=== PATIENT | male | born 1945 | race Caucasian/White ===

== ENCOUNTER 2020-11-01 01:24 | Emergency (ER) | payer MEDICARE ==
[2020-11-01 01:52] LABS: Absolute Lymphocytes (CBC) 1.6 K/uL (0.7-4.9); Basophils % 0.8 % (0-1.3); Hematocrit 41.5 % (39.6-49.0); Lymphocytes % 17.7 % (15.3-44.8); MPV 9.3 fL (7.6-11.3); RBC Red Blood Cell Count 4.39 M/uL (4.33-5.43)
[2020-11-01 01:54] LABS: Urine Blood 3+ (Negative); Urine Glucose Negative (Negative); Urine Protein 2+ (Negative); Urine Specific Gravity >=1.030 (1.005-1.030)
[2020-11-01] MEDS ORDERED: MORPHINE 4 MG/ML SYR ONE (01:57)
[2020-11-01] MEDS ORDERED: ONDANSETRON 4 MG/2 ML VIAL ONE (01:57)
[2020-11-01] MEDS ORDERED: TAMSULOSIN 0.4 MG SR CAP ONE (01:57)
[2020-11-01 01:58] LABS: Potassium 3.6 mmol/L (3.5-5.1)
[2020-11-01] MEDS ORDERED: Magnesium Sulfate 2gm IVPB 2 G/50 ML BAG IV ONE (01:58)
[2020-11-01] MEDS ORDERED: NA CHLORIDE 0.9% 1,000 ML ONE (02:05)
[2020-11-01] MEDS ORDERED: MEPERIDINE HCL 25 MG/ML SYR ONE ×2 (02:19→03:33)
--- OUTSIDE RECORDS SUMMARY | 2020-11-01 02:40 | XMS REPORT | Continuity of Care Document ---
:1945 Author Organization [facility] t Address [address] [place] [address] Care Team Providers Name Role Phone Unruly Calderon MD Attending Clinician DR KALI Attending Clinician Unavailable DR PINA Attending Clinician Unavailable DR KALI Admitting Clinician Unavailable DR PINA Admitting Clinician Unavailable Problems This patient has no known problems. Allergies, Adverse Reactions, Alerts This patient has no known allergies or adverse reactions. Medications This patient has no known medications. Procedures This patient has no known procedures. Encounters Start End Encounter Admission Attending Care Care Encounter Source Date/Time Date/Time Type Type Clinicians Facility Department ID 2020-10-21 2020-10-21 Office NOREEN Calderon [id number] 09:28:50 10:35:38 Visit Jennifer Croft [id number] [place] [id number] [facility] [id number] nal 059 [facility] 2020-04-29 2020-04-29 Outpatient [facility] [id number] [facility] [address] 00:00:00 00:00:00 [facility] 2019-07-05 2019-07-05 Emergency E [facility]ITO [facility] [id number] [place] 19:15:00 20:11:00 [facility] [place] 2019-01-04 2019-01-04 Emergency E PINA [facility] [id number] 75 [place] 08:53:00 10:00:00 [facility] Results This patient has no known results.
[2020-11-01] MEDS ORDERED: KETOROLAC 30 MG/ML INJ ONE (03:34)
--- NOTE | 2020-11-01 05:45 | EDPHYS ---
Physician Documentation [facility] Name: Micheal Draper Age: 74 yrs Sex: Male : 1945 Arrival Date: 11/01/2020 Time: 01:25 Bed 5 Private MD: ED Physician Floyd Walden HPI: 11/01 01:35 This 74 yrs old Male presents to ER via Unassigned with complaints of flank rn pain, kidney stone. 01:35 The patient complains of pain in the left low back. The pain radiates to the abdomen. rn Onset: The symptoms/episode began/occurred just prior to arrival. Modifying factors: The symptoms are alleviated by nothing. the symptoms are aggravated by nothing. Associated signs and symptoms: Pertinent positives: nausea, Pertinent negatives: fever. Severity of pain: At its worst the pain was moderate in the emergency department the pain is unchanged. The patient has experienced similar episodes in the past. The patient has not recently seen a physician. Reports thinks passing kidney stone, identical to previous episodes in past, never required surgery or intervention, just started within last 2 hours. . Historical: - Allergies: 01:40 No Known Allergies; [facility] - Home Meds: 01:40 tamsulosin oral [Active]; atorvastatin oral [Active]; [facility] - PMHx: 01:40 Hypercholesterolemia; Carcinoma of prostate; [facility] - PSHx: 01:42 None; [facility] - Immunization history:: Adult Immunizations up to date, Client reports receiving the 2nd dose of the Covid vaccine. - Social history:: Smoking status: Patient denies any tobacco usage or history of. - Family history:: not pertinent. - Hospitalizations: : No recent hospitalization is reported. ROS: 01:35 Constitutional: Negative for fever, chills, and weight loss, Eyes: Negative for injury, rn pain, redness, and discharge, Neck: Negative for injury, pain, and swelling, Cardiovascular: Negative for chest pain, palpitations, and edema, Respiratory: Negative for shortness of breath, cough, wheezing, and pleuritic chest pain, Abdomen/GI: Negative for diarrhea, and constipation, Back: + left flank pain : Negative for injury, bleeding, discharge, and swelling, MS/Extremity: Negative for injury and deformity, Skin: Negative for injury, rash, and discoloration, Neuro: Negative for headache, weakness, numbness, tingling, and seizure. 01:35 All other systems are negative. rn Exam: 01:35 Constitutional: This is a well developed, well nourished patient who is awake, alert, rn appears uncomfortable, pacing around room asking for emesis bag. Head/Face: Normocephalic, atraumatic. Eyes: Periorbital areas with no swelling, redness, or edema. Cardiovascular: Regular rate and rhythm. No pulse deficits. Respiratory: No increased work of breathing, no retractions or nasal flaring. Abdomen/GI: soft, non-tender Back: No spinal tenderness. No costovertebral tenderness. Full range of motion. Skin: Warm, dry MS/ Extremity: Pulses equal, no cyanosis. Neuro: Awake and alert, GCS 15 Vital Signs: 01:38 BP 126 / 80; Pulse 57; Resp 16; Temp 97.7; Pulse Ox 100% ; Weight 73.48 kg; Height 5 jm8 ft. 9 in. (175.26 cm); Pain 10/10; 02:32 BP 109 / 76; Pulse 101; Resp 16 S; Pulse Ox 96% on R/A; Pain 5/10; bb 03:24 BP 132 / 77; Pulse 88; Resp 18 S; Pulse Ox 94% on R/A; Pain 5/10; bb 04:27 BP 107 / 70; Pulse 80; Resp 14; Pulse Ox 96% on R/A; bb 05:25 BP 127 / 71; Pulse 77; Resp 16; Pulse Ox 95% on R/A; 8 01:38 Body Mass Index 23.92 (73.48 kg, 175.26 cm) [facility] MDM: 01:25 Patient medically screened. rn 01:38 Differential diagnosis: nephrolithiasis, pyelonephritis, UTI, diverticulitis. rn Differential diagnosis: ruptured AAA, dissecting AAA. Data reviewed: vital signs, nurses notes. 03:20 ED course: CT shows recently passed 11mm stone in bladder, also has 6mm stone mid rn ureter left side, likely to pass the 6mm if could pass the 11mm. Will treat with more pain medication and assist passage while observing here. . 04:40 ED course: Pt with marked improvement, pain down to 2-3/10, will continue to observe. . rn 05:44 Counseling: I had a detailed discussion with the patient and/or guardian regarding: the rn historical points, exam findings, and any diagnostic results supporting the discharge/admit diagnosis, lab results, radiology results, the need for outpatient follow up, to return to the emergency department if symptoms worsen or persist or if there are any questions or concerns that arise at home. Response to treatment: the patient's symptoms have markedly improved after treatment, the patient's condition has returned to base line, the patient is now symptom free, sleeping comfortably, and as a result, I will discharge patient. Special discussion: I discussed with the patient/guardian in detail that at this point there is no indication for admission to the hospital. It is understood, however, that if the symptoms persist or worsen the patient needs to return immediately for re-evaluation. Based on the history and exam findings, there is no indication for further emergent testing or inpatient evaluation. I discussed with the patient/guardian the need to see the urologist for further evaluation of the symptoms. 11/01 01:26 Order name: CBC with Diff rn 11/01 01:26 Order name: Basic Metabolic Panel rn 11/01 01:26 Order name: CBC with Automated Diff EDMS 11/01 01:26 Order name: Basic Metabolic Panel EDMS 11/01 01:54 Order name: Urine Dipstick-Ancillary EDMS 11/01 01:26 Order name: CT Stone Protocol rn 11/01 01:26 Order name: IV Start; Complete Time: 01:38 rn 11/01 01:26 Order name: Urine Dipstick-Ancillary (obtain specimen); Complete Time: 01:54 rn Administered Medications: 01:45 Drug: morphine 4 mg Route: IVP; Site: right antecubital; bb 02:03 Follow up: Response: No adverse reaction; Pain is unchanged, physician notified bb 01:45 Drug: NS 0.9% 1000 ml Route: IV; Rate: 1000 ml; Site: right antecubital; bb 02:45 Follow up: IV Status: Completed infusion; IV Intake: 1000ml bb 01:46 Drug: Zofran (Ondansetron) 4 mg Route: IVP; Site: right antecubital; bb 02:32 Follow up: Response: No adverse reaction bb 01:56 Drug: Magnesium Sulfate 1 grams Route: IVPB; Infused Over: 1 hrs; Site: right bb antecubital; 03:00 Follow up: IV Status: Completed infusion; IV Intake: 25ml bb 01:56 Drug: Flomax (tamsulosin) 0.4 mg Route: PO; bb 02:32 Follow up: Response: No adverse reaction bb 02:03 Drug: Demerol (meperidine) 25 mg {Note: RASS 0.} Route: IVP; Site: right antecubital; bb 02:32 Follow up: Response: No adverse reaction; Pain is decreased; RASS: Drowsy (-1) bb 03:20 Drug: Ketorolac 15 mg Route: IVP; Site: right antecubital; bb 04:28 Follow up: Response: No adverse reaction; Pain is decreased bb 03:20 Drug: Demerol (meperidine) 25 mg {Note: RASS 0.} Route: IVP; Site: right antecubital; bb 04:28 Follow up: Response: No adverse reaction; Pain is decreased; RASS: Drowsy (-1) bb 05:44 CANCELLED (Duplicate Order): [place] (HYDROcodone-acetaminophen) 10 mg-325 mg 1 tabs PO rn once; RASS on ADMIN: Combtv4, Very Agttd3, Agttd2, Rstlss1, AlertClm0, Drwsy-1, Lt Sdtn-2, Mod Sdtn-3, Dp Sdtn-4, UnArsble-5 06:04 Drug: HYDROcodone-acetaminophen 5 mg-325 mg 1 tabs Route: PO; jm8 06:06 Follow up: Response: No adverse reaction 8 Disposition Summary: 11/01/20 05:45 Discharge Ordered Location: Home rn Problem: an acute exacerbation rn Symptoms: have improved rn Condition: Stable rn Diagnosis - Calculus of kidney with calculus of ureter rn Followup: rn - With: Private Physician - When: As needed - Reason: Recheck today's complaints, Re-evaluation by your physician Discharge Instructions: - Discharge Summary Sheet rn - Kidney Stones rn - Dietary Guidelines to Help Prevent Kidney Stones rn Forms: - Medication Reconciliation Form rn - Thank You Letter rn - Antibiotic ornamenter hand - Prescription Opioid Use rn Prescriptions: - ondansetron 4 mg Oral tablet,disintegrating - take 1 tablet by ORAL route every 8 hours As needed; 15 tablet; Refills: 0, rn Product Selection Permitted - Tramadol 50 mg Oral Tablet - take 1 tablet by ORAL route every 8 hours as needed; 15 tablet; Refills: 0, rn Product Selection Permitted Signatures: Dispatcher [employer] Leonila Hong, Floyd Khan RN, MD MD rn Malcaba, Joseph, RN CHRIS jm8 Corrections: (The following items were deleted from the chart) 01:38 01:35 Constitutional: This is a well developed, well nourished patient who is awake, rn alert, appears uncomfortable, pacing around room asking for emesis bag. Head/Face: Normocephalic, atraumatic. Eyes: Periorbital areas with no swelling, redness, or edema. Cardiovascular: Regular rate and rhythm. No pulse deficits. Respiratory: No increased work of breathing, no retractions or nasal flaring. Abdomen/GI: soft, non-tender Back: No spinal tenderness. No costovertebral tenderness. Full range of motion. Skin: Warm, dry Neuro: Awake and alert, GCS 15 rn 01:39 01:35 Constitutional: This is a well developed, well nourished patient who is awake, rn alert, appears uncomfortable, pacing around room asking for emesis bag. Head/Face: Normocephalic, atraumatic. Eyes: Periorbital areas with no swelling, redness, or edema. Cardiovascular: Regular rate and rhythm. No pulse deficits. Respiratory: No increased work of breathing, no retractions or nasal flaring. Abdomen/GI: soft, non-tender Back: No spinal tenderness. No costovertebral tenderness. Full range of motion. Skin: Warm, dry Neuro: Awake and alert, GCS 15 rn 05:44 05:43 [place] (HYDROcodone-acetaminophen) 10 mg-325 mg 1 tabs PO once; RASS on ADMIN: rn Combtv4, Very Agttd3, Agttd2, Rstlss1, AlertClm0, Drwsy-1, Lt Sdtn-2, Mod Sdtn-3, Dp Sdtn-4, UnArsble-5 ordered. rn
--- NOTE | 2020-11-01 05:45 | ER ---
Nurse's Notes [facility] Name: Micheal Darper Age: 74 yrs Sex: Male : 1945 Arrival Date: 11/01/2020 Time: 01:25 Bed 5 Private MD: Diagnosis: Calculus of kidney with calculus of ureter Presentation: 11/01 01:38 Chief complaint: Patient states: I started having left side flank pain around 1130 jm8 tonight. I have had kidney stones before and it feels like the same thing. Patient also complains of nausea and vomiting. Coronavirus screen: Client denies travel out of the [place] in the last 14 days. Ebola Screen: Patient negative for fever greater than or equal to 101.5 degrees Fahrenheit, and additional compatible Ebola Virus Disease symptoms Patient denies exposure to infectious person. Patient denies travel to an Ebola-affected area in the 21 days before illness onset. Initial Sepsis Screen: Does the patient meet any 2 criteria? No. Patient's initial sepsis screen is negative. Does the patient have a suspected source of infection? No. Patient's initial sepsis screen is negative. Risk Assessment: Do you want to hurt yourself or someone else? Patient reports no desire to harm self or others. Onset of symptoms was October 31, 2020 at 23:30. 01:38 Method Of Arrival: Ambulatory [facility] 01:38 Acuity: ANA 3 jm8 Triage Assessment: 01:43 General: Appears in no apparent distress. comfortable, Behavior is calm, cooperative, jm8 appropriate for age. Pain: Complains of pain in abdomen and left low back Pain currently is 10 out of 10 on a pain scale. Quality of pain is described as radiating, sharp, shooting, Also complains of nausea. EENT: No deficits noted. No signs and/or symptoms were reported regarding the EENT system. Neuro: No deficits noted. Level of Consciousness is awake, alert, obeys commands, Oriented to person, place, time. Cardiovascular: No deficits noted. Respiratory: No deficits noted. Airway is patent Trachea midline Respiratory effort is even, unlabored, Respiratory pattern is regular, symmetrical. GI: Reports lower abdominal pain, upper abdominal pain, nausea, vomiting. : Reports cramping, pain in left flank(s). Derm: No deficits noted. No signs and/or symptoms reported regarding the dermatologic system. Musculoskeletal: No deficits noted. No signs and/or symptoms reported regarding the musculoskeletal system. Historical: - Allergies: 01:40 No Known Allergies; [facility] - Home Meds: 01:40 tamsulosin oral [Active]; atorvastatin oral [Active]; 8 - PMHx: 01:40 Hypercholesterolemia; Carcinoma of prostate; [facility] - PSHx: 01:42 None; [facility] - Immunization history:: Adult Immunizations up to date, Client reports receiving the 2nd dose of the Covid vaccine. - Social history:: Smoking status: Patient denies any tobacco usage or history of. - Family history:: not pertinent. - Hospitalizations: : No recent hospitalization is reported. Screenin:42 Abuse screen: Denies threats or abuse. Denies injuries from another. Nutritional [facility] screening: No deficits noted. Tuberculosis screening: No symptoms or risk factors identified. Fall Risk None identified. Assessment: 02:02 Reassessment: pt states pain is still there Dr Walden notified pt medicated see MAR. Pt bb taken to CT via stretcher with senior qc technician. 02:14 Reassessment: pt returned from CT via stretcher with senior qc technician. bb 02:31 Reassessment: pt is resting quietly states the pain has improved but is still there now bb 510. 03:22 Reassessment: pt is A\T\O x 4, states his pain is still there is still 5/10. Dr Walden at bedside for discussion of findings and recommendations pt will continue to be monitored for a while longer. New orders received pt medicated see MAR. IV site intact, no erythema or edema noted. Spouse at bedside. 04:27 Reassessment: pt appears to be sleeping, eyes closed, resp unlabored, spouse at bedside.bb 05:26 Reassessment: Patient appears in no apparent distress at this time. Pt sleeping. [facility] Vital Signs: 01:38 BP 126 / 80; Pulse 57; Resp 16; Temp 97.7; Pulse Ox 100% ; Weight 73.48 kg; Height 5 8 ft. 9 in. (175.26 cm); Pain 10/10; 02:32 BP 109 / 76; Pulse 101; Resp 16 S; Pulse Ox 96% on R/A; Pain 5/10; bb 03:24 BP 132 / 77; Pulse 88; Resp 18 S; Pulse Ox 94% on R/A; Pain 5/10; bb 04:27 BP 107 / 70; Pulse 80; Resp 14; Pulse Ox 96% on R/A; bb 05:25 BP 127 / 71; Pulse 77; Resp 16; Pulse Ox 95% on R/A; jm8 01:38 Body Mass Index 23.92 (73.48 kg, 175.26 cm) jm8 ED Course: 01:25 Patient arrived in ED. rn 01:25 Floyd Walden MD is Attending Physician. rn 01:40 Triage completed. jm8 01:42 Patient has correct armband on for positive identification. Bed in low position. Call jm8 light in reach. Side rails up X2. Adult w/ patient. 01:44 Arm band placed on right wrist. jm8 02:22 CT Stone Protocol In Process Unspecified. EDMS 03:25 Leonila Hopkins RN is Primary Nurse. bb 06:05 No provider procedures requiring assistance completed. Patient did not have IV access jm8 during this emergency room visit. intact, bleeding controlled. Administered Medications: 01:45 Drug: morphine 4 mg Route: IVP; Site: right antecubital; bb 02:03 Follow up: Response: No adverse reaction; Pain is unchanged, physician notified bb 01:45 Drug: NS 0.9% 1000 ml Route: IV; Rate: 1000 ml; Site: right antecubital; bb 02:45 Follow up: IV Status: Completed infusion; IV Intake: 1000ml bb 01:46 Drug: Zofran (Ondansetron) 4 mg Route: IVP; Site: right antecubital; bb 02:32 Follow up: Response: No adverse reaction bb 01:56 Drug: Magnesium Sulfate 1 grams Route: IVPB; Infused Over: 1 hrs; Site: right bb antecubital; 03:00 Follow up: IV Status: Completed infusion; IV Intake: 25ml bb 01:56 Drug: Flomax (tamsulosin) 0.4 mg Route: PO; bb 02:32 Follow up: Response: No adverse reaction bb 02:03 Drug: Demerol (meperidine) 25 mg {Note: RASS 0.} Route: IVP; Site: right antecubital; bb 02:32 Follow up: Response: No adverse reaction; Pain is decreased; RASS: Drowsy (-1) bb 03:20 Drug: Ketorolac 15 mg Route: IVP; Site: right antecubital; bb 04:28 Follow up: Response: No adverse reaction; Pain is decreased bb 03:20 Drug: Demerol (meperidine) 25 mg {Note: RASS 0.} Route: IVP; Site: right antecubital; bb 04:28 Follow up: Response: No adverse reaction; Pain is decreased; RASS: Drowsy (-1) bb 05:44 CANCELLED (Duplicate Order): [place] (HYDROcodone-acetaminophen) 10 mg-325 mg 1 tabs PO rn once; RASS on ADMIN: Combtv4, Very Agttd3, Agttd2, Rstlss1, AlertClm0, Drwsy-1, Lt Sdtn-2, Mod Sdtn-3, Dp Sdtn-4, UnArsble-5 06:04 Drug: HYDROcodone-acetaminophen 5 mg-325 mg 1 tabs Route: PO; heide 06:06 Follow up: Response: No adverse reaction heide Intake: 02:45 IV: 1000ml; Total: 1000ml. bb 03:00 IV: 25ml; Total: 1025ml. Outcome: 05:45 Discharge ordered by . rn 06:05 Discharged to home ambulatory, with family. heide 06:05 Condition: good 06:05 Discharge instructions given to patient, family, Instructed on discharge instructions, follow up and referral plans. medication usage, Demonstrated understanding of instructions, follow-up care, medications, Prescriptions given X 2. 06:05 Patient left the ED. jm8 Signatures: Dispatcher [employer] Leonila Hong RN RN bb Nieto, Roman, MD MD rn Malcaba, Joseph, RN RN jm8
[2020-11-01] MEDS ORDERED: HYDROCODONE/APAP 5/325 MG TAB ONE (06:09)
[2020-11-01 06:10] VITALS: TEMP 97.7
[2020-11-01 06:16] VITALS: BP 127/71; O2SAT 95
--- NOTE | 2020-11-02 12:15 | RAD REPORT ---
EXAM DESCRIPTION: CT Abdomen and Pelvis Without Intravenous Contrast CLINICAL HISTORY: The patient is 74 years old and is Male; left flank pain TECHNIQUE: Axial computed tomography images of the abdomen and pelvis without intravenous contrast. Sagittal and coronal reformatted images were created and reviewed. This CT exam was performed us ing one or more of the following dose reduction techniques: automated exposure control, adjustment of the mA and/or kV according to patient size, and/or use of iterative reconstruction technique. COMPARISON: No relevant prior studies available. FINDINGS: Lung bases: Unremarkable. No mass. No consolidation. Mediastinum: Small hiatal hernia. ABDOMEN: Liver: Cysts in the liver measuring up to 2.2 cm on the left. Gallbladder and bile ducts: Unremarkable. No calcified stones. No ductal dilation. Pancreas: Unremarkable. No ductal dilation. Spleen: Unremarkable. No splenomegaly. Adrenals: Unremarkable. No mass. Kidneys and ureters: 6 mm stone in the proximal left ureter. Mild left hydroureteronephrosis. Multiple calcifications in the kidneys bilaterally. Stomach and bowel: Unremarkable. No obstruction. No mucosal thickening. PELVIS: Appendix: No findings to suggest acute appendicitis. Bladder: 11 mm stone in the bladder. Reproductive: Unremarkable as visualized. ABDOMEN and PELVIS: Intraperitoneal space: Unremarkable. No free air. No significant fluid collection. Bones/joints: Mild anterolisthesis of L4 on L5. No acute fracture. No dislocation. Soft tissues: Unremarkable. Vasculature: Scattered atherosclerotic vascular calcifications. No abdominal aortic aneurysm. Lymph nodes: Unremarkable. No enlarged lymph nodes. IMPRESSION: 1. 6 mm stone in the proximal left ureter. Mild left hydroureteronephrosis. 2. 11 mm stone in the bladder. Electronically signed by: Linden Castro MD 11/01/2020 3:06 AM CDT Due to temporary technical issues with the PACS/Fluency reporting system, reports are being signed by the in house radiologists without review as a courtesy to insure prompt reporting. The interpreting radiologist is fully responsible for the content of the report.
== END 2020-11-01 06:05 | disposition home or self-care (01) ==
LOC: ER 01:24
DX: N20.2 Calculus of kidney with calculus of ureter (principal); E78.00 Pure hypercholesterolemia, unspecified; Z85.46 Personal history of malignant neoplasm of prostate
CPT/HCPCS: 96365; 85025; 80048; 36415; 81003; 76377; 74176; 96375; 99283; J2175 ×2; J3475; J7030; J2405

== ENCOUNTER 2020-11-04 04:53 | Emergency (ER) | payer MEDICARE ==
--- OUTSIDE RECORDS SUMMARY | 2020-11-04 05:00 | XMS REPORT | Continuity of Care Document ---
:1945 Author Organization [facility] t Address [address] [place] [address] Care Team Providers Name Role Phone Kvng DUNCAN KKuldip Attending Clinician DR KALI Attending Clinician Unavailable [...] ID 2020-10-21 2020-10-21 Office NOREEN Calderon [id number] 09:28:50 10:35:38 Visit Jennifer Croft [id number] [place] [id number] [place] [id number] nal 059 [facility] 2020-04-29 2020-04-29 Outpatient [facility] [id number] [facility] St 00:00:00 00:00:00 [facility] 2019-07-05 2019-07-05 Emergency E MARGARITO BASS [facility] [id number] [place] 19:15:00 20:11:00 [place] 2019-01-04 2019-01-04 Emergency E PINA [facility] [id number] [place] 08:53:00 10:00:00 [facility] Results This patient has no known results.
[2020-11-04] MEDS ORDERED: HYDROMORPHONE HCL 1 MG/ML INJ ONE (05:48)
[2020-11-04] MEDS ORDERED: ONDANSETRON 4 MG/2 ML VIAL ONE (05:48)
[2020-11-04] MEDS ORDERED: NA CHLORIDE 0.9% 1,000 ML ONE ×2 (05:49→06:58)
[2020-11-04 05:51] LABS: Absolute Lymphocytes (CBC) 1.4 K/uL (0.7-4.9); Basophils % 1.1 % (0-1.3); Lymphocytes % 24.2 % (15.3-44.8); MPV 9.3 fL (7.6-11.3); RBC Red Blood Cell Count 4.06 M/uL (4.33-5.43)
[2020-11-04 06:12] LABS: Albumin 3.5 g/dL (3.4-5.0); Bilirubin Direct 0.2 mg/dL (0-0.2); Potassium 3.7 mmol/L (3.5-5.1); Protein, Total 6.6 g/dL (6.4-8.2)
[2020-11-04] MEDS ORDERED: MORPHINE 4 MG/ML SYR ONE (06:57)
[2020-11-04] MEDS ORDERED: PROMETHAZINE INJ 25 MG/ML AMP ONE (06:57)
[2020-11-04] MEDS ORDERED: KETOROLAC 30 MG/ML INJ ONE (06:58)
--- NOTE | 2020-11-04 07:04 | ER ---
Nurse's Notes [facility] Name: Micheal Draper Age: 74 yrs Sex: Male : 1945 Arrival Date: 11/04/2020 Time: 04:55 Bed 20 Private MD: Diagnosis: Calculus of ureter-0.5 cm calculus in left ureter ;Kidney Stone/ Calculus in bladder Presentation: 11/04 05:17 Chief complaint: Patient states: I was here 2 days ago for a kidney stone. They said jb4 they think I may have passed one that was in my bladder. I was checking my urine but never found one. I felt great on the medication and thought I was finished with the stones but the pain came back this morning. Coronavirus screen: Client denies travel out of the [place] in the last 14 days. At this time, the client does not indicate any symptoms associated with coronavirus-19. Ebola Screen: No symptoms or risks identified at this time. Initial Sepsis Screen: Does the patient meet any 2 criteria? No. Patient's initial sepsis screen is negative. Does the patient have a suspected source of infection? No. Patient's initial sepsis screen is negative. Risk Assessment: Do you want to hurt yourself or someone else? Patient reports no desire to harm self or others. Onset of symptoms was November 04, 2020. Transition of care: patient was not received from another setting of care. 05:17 Method Of Arrival: Ambulatory 4 05:17 Acuity: ANA 3 jb4 Historical: - Allergies: 05:21 No Known Allergies; jb4 - Home Meds: 05:21 tamsulosin Oral [Active]; atorvastatin Oral [Active]; jb4 - PMHx: 05:21 Carcinoma of prostate; Hypercholesterolemia; jb4 - PSHx: 05:21 R ankle; JORDAN Eye; jb4 - Immunization history:: Adult Immunizations up to date. - Social history:: Patient/guardian denies using alcohol, street drugs, The patient lives with family, Smoking status: Patient denies any tobacco usage or history of. Patient/guardian denies using alcohol, street drugs. - Family history:: not pertinent. Screenin:22 Abuse screen: Denies threats or abuse. Nutritional screening: No deficits noted. jb4 Tuberculosis screening: No symptoms or risk factors identified. Fall Risk None identified. Assessment: 05:22 General: Appears in no apparent distress. uncomfortable, Behavior is calm, cooperative. jb4 Pain: Complains of pain in left low back Pain does not radiate. Pain currently is 10 out of 10 on a pain scale. Neuro: Level of Consciousness is awake, alert, obeys commands, Oriented to person, place, time, situation. Cardiovascular: Patient's skin is warm and dry. Respiratory: Airway is patent Respiratory effort is even, unlabored, Respiratory pattern is regular, symmetrical. GI: No signs and/or symptoms were reported involving the gastrointestinal system. : Reports pain in left flank(s). EENT: No signs and/or symptoms were reported regarding the EENT system. Derm: Skin is intact, Skin is pink, warm \T\ dry. Musculoskeletal: Circulation, motion, and sensation intact. Range of motion: intact in all extremities. 05:46 Reassessment: Pt desating to 79% on RA after Dilaudid administration. Placed on 2L NC, jb4 provider notified. Now satting 100% on 2L NC. 06:30 Reassessment: Patient appears in no apparent distress at this time. Patient and/or jb4 family updated on plan of care and expected duration. Pain level reassessed. Patient is alert, oriented x 3, equal unlabored respirations, skin warm/dry/pink. 07:20 Reassessment: Patient appears in no apparent distress at this time. Patient and/or ph family updated on plan of care and expected duration. Pain level reassessed. PT resting w/ eyes closed, respirations even and unlabored, currently on NC at 2L after receiving IV medications per night shift supervisor. Spo2 95% at this time D/C pending pt becoming awake and alert. VSS, will continue to monitor. 08:22 Reassessment: Pt A\T\Ox4, transported to vehicle via wheelchair, driving. jl7 Vital Signs: 05:17 BP 132 / 69; Pulse 59; Resp 16; Temp 98.1(O); Pulse Ox 96% on R/A; Weight 72.57 kg (R); jb4 Height 5 ft. 9 in. (175.26 cm) (R); Pain 10/10; 07:24 BP 112 / 71; Pulse 71; Resp 16; Pulse Ox 95% on 2 lpm NC; ph 08:12 BP 117 / 60; Pulse 72; Resp 15; Pulse Ox 96% on R/A; jl7 05:17 Body Mass Index 23.63 (72.57 kg, 175.26 cm) jb4 ED Course: 04:55 Patient arrived in ED. bp1 05:17 Micheal Urias, RN is Primary Nurse. jb4 05:18 Marcellus Eldridge MD is Attending Physician. ma2 05:20 Triage completed. jb4 05:21 Arm band placed on left wrist. jb4 05:22 Patient has correct armband on for positive identification. Bed in low position. Call jb light in reach. Side rails up X 1. Pulse ox on. NIBP on. 05:31 CT Stone Protocol In Process Unspecified. EDMS 08:12 No provider procedures requiring assistance completed. IV discontinued, intact, jl7 bleeding controlled, No redness/swelling at site. Pressure dressing applied. Administered Medications: 05:33 Drug: Zofran (Ondansetron) 4 mg Route: IVP; Site: right antecubital; jb4 05:35 Drug: Dilaudid (HYDROmorphone) 1 mg Route: IVP; Site: right forearm; jb4 05:35 Drug: NS 0.9% 1000 ml Route: IV; Rate: 1000 ml; Site: right forearm; jb4 06:52 Drug: Phenergan (promethazine) 25 mg Route: IVP; Site: right antecubital; jb4 07:15 Follow up: Response: No adverse reaction; Nausea is decreased jl7 06:55 Drug: NS 0.9% 1000 ml Route: IV; Rate: 1 bolus; Site: right antecubital; jb4 07:45 Follow up: Response: No adverse reaction; IV Status: Completed infusion; IV Intake: jl7 1000ml 06:55 Drug: Ketorolac 30 mg Route: IVP; Site: right antecubital; jb4 07:15 Follow up: Response: No adverse reaction; Pain is decreased jl7 06:56 Drug: morphine 4 mg Route: IVP; Site: right antecubital; jb4 07:15 Follow up: Response: No adverse reaction; Pain is decreased jl7 Intake: 07:45 IV: 1000ml; Total: 1000ml. jl7 Outcome: 07:04 Discharge ordered by . ma2 08:12 Discharged to home via wheelchair, with family. jl7 08:12 Condition: stable 08:12 Discharge instructions given to patient, Instructed on discharge instructions, follow up and referral plans. medication usage, Demonstrated understanding of instructions, follow-up care, medications, Prescriptions given X 2. 08:23 Patient left the ED. jl7 Signatures: Dispatcher [employer] EDPaulette Banerjee RN RN Micheal Urias RN RN jb4 Luana Steinberg RN RN jl7 Marcellus Eldridge MD MD ma2 Yael Vazquez [facility]
--- NOTE | 2020-11-04 07:04 | EDPHYS ---
Physician Documentation [facility] Name: Micheal Draper Age: 74 yrs Sex: Male : 1945 Arrival Date: 11/04/2020 Time: 04:55 Bed 20 Private MD: ED Physician Marcellus Eldridge HPI: 11/04 05:18 This 74 yrs old Male presents to ER via Unassigned with complaints of ma2 Possible Kidney Stone. 05:18 The patient complains of pain in the left mid back. The pain does not radiate. ma2 Associated signs and symptoms: Pertinent negatives: dysuria, headache, hematuria, nausea. Severity of pain: At its worst the pain was moderate in the emergency department the pain is unchanged. The patient has experienced similar episodes in the past. Historical: - Allergies: 05:21 No Known Allergies; jb4 - Home Meds: 05:21 tamsulosin Oral [Active]; atorvastatin Oral [Active]; jb4 - PMHx: 05:21 Carcinoma of prostate; Hypercholesterolemia; jb4 - PSHx: 05:21 R ankle; JORDAN Eye; jb4 - Immunization history:: Adult Immunizations up to date. - Social history:: Patient/guardian denies using alcohol, street drugs, The patient lives with family, Smoking status: Patient denies any tobacco usage or history of. Patient/guardian denies using alcohol, street drugs. - Family history:: not pertinent. ROS: 05:18 Constitutional: Negative for fever, chills, and weight loss. ma2 05:18 All other systems are negative. Exam: 05:18 Constitutional: This is a well developed, well nourished patient who is awake, alert, ma2 and in no acute distress. ENT: Nares patent. No nasal discharge, no septal abnormalities noted. Tympanic membranes are normal and external auditory canals are clear. Oropharynx with no redness, swelling, or masses, exudates, or evidence of obstruction, uvula midline. Mucous membranes moist. Neck: Trachea midline, no thyromegaly or masses palpated, and no cervical lymphadenopathy. Supple, full range of motion without nuchal rigidity, or vertebral point tenderness. No Meningismus. Chest/axilla: Normal chest wall appearance and motion. Nontender with no deformity. No lesions are appreciated. Cardiovascular: Regular rate and rhythm with a normal S1 and S2. No gallops, murmurs, or rubs. Normal PMI, no JVD. No pulse deficits. Respiratory: Lungs have equal breath sounds bilaterally, clear to auscultation and percussion. No rales, rhonchi or wheezes noted. No increased work of breathing, no retractions or nasal flaring. Abdomen/GI: Soft, non-tender, with normal bowel sounds. No distension or tympany. No guarding or rebound. No evidence of tenderness throughout. Vital Signs: 05:17 BP 132 / 69; Pulse 59; Resp 16; Temp 98.1(O); Pulse Ox 96% on R/A; Weight 72.57 kg (R); jb4 Height 5 ft. 9 in. (175.26 cm) (R); Pain 10/10; 07:24 BP 112 / 71; Pulse 71; Resp 16; Pulse Ox 95% on 2 lpm NC; ph 08:12 BP 117 / 60; Pulse 72; Resp 15; Pulse Ox 96% on R/A; jl7 05:17 Body Mass Index 23.63 (72.57 kg, 175.26 cm) jb4 MDM: 05:18 Differential diagnosis: nephrolithiasis, pyelonephritis, UTI. [facility] 05:19 Patient medically screened. [facility] 07:03 Data reviewed: vital signs, nurses notes. Counseling: I had a detailed discussion with [facility] the patient and/or guardian regarding: the historical points, exam findings, and any diagnostic results supporting the discharge/admit diagnosis, the presence of at least one elevated blood pressure reading (>120/80) during this emergency department visit, the need for outpatient follow up, patient states he has a urologist dr. aleman in [place] and he will see himin 2 days . Response to treatment: the patient's symptoms have markedly improved after treatment. 07:05 ED course: patient was here 2 days ago and was prescribed tramadol and zofran, he felt ma2 good and so he stopped taking them, he also take flomax daily for BPH. . 11/04 04:57 Order name: Basic Metabolic Panel; Complete Time: 06:28 me2 11/04 04:57 Order name: CBC with Diff; Complete Time: 06:02 me2 11/04 04:57 Order name: Hepatic Function; Complete Time: 06:28 [facility] 11/04 04:57 Order name: Lipase; Complete Time: 06:28 ma2 11/04 04:57 Order name: Urine Microscopic Only ma2 11/04 07:54 Order name: Urine Dipstick-Ancillary EDMS 11/04 04:57 Order name: CT Stone Protocol me2 11/04 04:57 Order name: IV Saline Lock; Complete Time: 05:45 ma2 11/04 04:57 Order name: NPO; Complete Time: 05:23 ma2 11/04 04:57 Order name: Urine Dipstick-Ancillary (obtain specimen); Complete Time: 08:22 me2 Administered Medications: 05:33 Drug: Zofran (Ondansetron) 4 mg Route: IVP; Site: right antecubital; jb4 05:35 Drug: Dilaudid (HYDROmorphone) 1 mg Route: IVP; Site: right forearm; jb4 05:35 Drug: NS 0.9% 1000 ml Route: IV; Rate: 1000 ml; Site: right forearm; jb4 06:52 Drug: Phenergan (promethazine) 25 mg Route: IVP; Site: right antecubital; jb4 07:15 Follow up: Response: No adverse reaction; Nausea is decreased jl7 06:55 Drug: NS 0.9% 1000 ml Route: IV; Rate: 1 bolus; Site: right antecubital; jb4 07:45 Follow up: Response: No adverse reaction; IV Status: Completed infusion; IV Intake: jl7 1000ml 06:55 Drug: Ketorolac 30 mg Route: IVP; Site: right antecubital; jb4 07:15 Follow up: Response: No adverse reaction; Pain is decreased jl7 06:56 Drug: morphine 4 mg Route: IVP; Site: right antecubital; jb4 07:15 Follow up: Response: No adverse reaction; Pain is decreased jl7 Disposition Summary: 11/04/20 07:04 Discharge Ordered Location: Home ma2 Condition: Stable ma2 Diagnosis - Calculus of ureter - 0.5 cm calculus in left ureter ma2 - Kidney Stone/ Calculus in bladder ma2 Followup: ma2 - With: Private Physician - When: Tomorrow - Reason: Continuance of care Discharge Instructions: - Discharge Summary Sheet ma2 - Kidney Stones ma2 Forms: - Medication Reconciliation Form ma2 - Thank You Letter ma2 - Antibiotic Education ma2 - Prescription Opioid Use ma2 Prescriptions: - Diclofenac Sodium 75 mg Oral Tablet Sustained Release - take 1 tablet by ORAL route 2 times per day; 30 tablet; Refills: 0, Product ma2 Selection Permitted - promethazine 25 mg Oral Tablet - take 1 tablet by ORAL route every 6 hours As needed; 20 tablet; Refills: 0, ma2 Product Selection Permitted Signatures: Dispatcher [employer] Micheal Callejas RN RN jb4 Marcellus Eldridge MD MD ma2 Luana Steinberg RN jl7
[2020-11-04 07:54] LABS: Urine Blood 3+ (Negative); Urine Glucose Negative (Negative); Urine Protein 1+ (Negative); Urine Specific Gravity >=1.030 (1.005-1.030)
[2020-11-04 08:15] LABS: Urine Bacteria <20 /HPF (NONE SEEN); Urine Mucus LIGHT /HPF (NONE SEEN); Urine RBC >50 /HPF (NONE SEEN); Urine Urothelial Cells <5 /HPF (NONE SEEN)
[2020-11-04 08:29] VITALS: TEMP 98.1
[2020-11-04 08:32] VITALS: BP 117/60; O2SAT 96
--- NOTE | 2020-11-04 12:44 | RAD REPORT ---
EXAM DESCRIPTION: CT - Stone Protocol - 11/04/2020 6:41 am COMPARISON: CT abdomen pelvis November 01, 2020 and March 13, 2019 CLINICAL HISTORY: FLANK PAIN TECHNIQUE: CT of the abdomen and pelvis was acquired without IV contrast material. Coronal and sag ittal reconstructions were obtained. Automated exposure control was utilized on this examination as a dose lowering technique. FINDINGS: Lung bases: Clear. *Evaluation of solid organs is limited due to lack of IV contrast. Liver: Hepatic cysts measure up to 2.4 cm. Gallbladder and biliary: Normal gallbladder. Unremarkable biliary tree. Pancreas: Normal. Spleen: Normal. Adrenal glands: Normal adrenal glands. Kidneys: 5 mm calculus of the mid left ureter with moderate left hydronephrosis. Multiple additional nonobstructing renal calculi measure up to 4 mm on the left and 3 mm on the right. Stomach and Small Bowel: The stomach and small bowel are normal. Urinary bladder: Mild bladder wall thickening is noted. An 8 mm bladder calculus is noted adjacent to the right ureterovesicular junction. Prostate/Male Urogenital: Enlarged measuring 5.2 cm mediolateral. Colon and Appendix: A large stool burden is present. The colon is otherwise unremarkable. No evidence of appendicitis. Retroperitoneum and lymph nodes: Normal. Vascular: Severe multivessel calcified atherosclerosis. Peritoneal cavity: No ascites or free air. Musculoskeletal and soft tissues: Soft tissues are unremarkable. Lumbar spondylosis. Grade 1 anteroli sthesis L4 on L5. There is a 2.0 cm lucent lesion of the right ilium which was described on the Novem 2018 CT. No compression fracture. IMPRESSION: 1. Stable 5 mm obstructing calculus of the mid left ureter with moderate left hydronephr osis. Additional nonobstructive nephrolithiasis is present bilaterally. 2. Mild bladder wall thickening may be seen with cystitis. An 8 mm bladder calculus is noted. 3. Prostatic hypertrophy. 4. Constipation. 5. Severe atherosclerosis. Electronically signed by: Francisco Winters MD 11/04/2020 6:11 AM CDT Due to temporary technical issues with the PACS/Fluency reporting system, reports are being signed by the in house radiologists without review as a courtesy to insure prompt reporting. The interpreting radiologist is fully responsible for the content of the report.
== END 2020-11-04 08:23 | disposition home or self-care (01) ==
LOC: ER 04:53
DX: N20.2 Calculus of kidney with calculus of ureter (principal); N21.0 Calculus in bladder; E78.00 Pure hypercholesterolemia, unspecified; Z85.46 Personal history of malignant neoplasm of prostate
CPT/HCPCS: 85025; 80048; 36415; 80076; 83690; 76377; 74176; 99284; J2550; J1170; J7030 ×2; J2405; 81003; 81015

== ENCOUNTER 2020-11-30 20:15 | Emergency (ER) | payer MEDICARE ==
--- OUTSIDE RECORDS SUMMARY | 2020-11-30 20:39 | XMS REPORT | Continuity of Care Document ---
:1945 Author Organization [facility] t Address [address] [place] [address] Care Team Providers Name Role Phone Kvng [...] ID 2020-10-21 2020-10-21 Office NOREEN Calderon [id number] 09:28:50 10:35:38 Visit Jennifer Croft [id number] [place] [id number] Jesi [id number] nal 059 [facility] 2020-04-29 2020-04-29 Outpatient [facility] [id number] St 00:00:00 00:00:00 [facility] 2019-07-05 2019-07-05 Emergency E MARGARITO BASS [facility] [id number] [place] 19:15:00 20:11:00 [facility] [place] 2019-01-04 2019-01-04 Emergency E PINA [facility] E[facility] [id number] 75 [place] 08:53:00 10:00:00 [facility] Results This patient has no known results.
[2020-11-30 22:02] LABS: Urine Blood 3+ (Negative); Urine Glucose Negative (Negative); Urine Protein 2+ (Negative); Urine Specific Gravity >=1.030 (1.005-1.030)
[2020-11-30 22:02] LABS: Absolute Lymphocytes (CBC) 1.8 K/uL (0.7-4.9); Basophils % 0.8 % (0-1.3); Hematocrit 39.7 % (39.6-49.0); Lymphocytes % 23.5 % (15.3-44.8); MPV 8.6 fL (7.6-11.3); RBC Red Blood Cell Count 4.23 M/uL (4.33-5.43)
[2020-11-30] MEDS ORDERED: ONDANSETRON 4 MG/2 ML VIAL ONE (22:15)
[2020-11-30] MEDS ORDERED: MORPHINE 4 MG/ML SYR ONE (22:15)
[2020-11-30 22:40] LABS: Bilirubin Direct 0.2 mg/dL (0-0.2); Bilirubin Total 0.9 mg/dL (0.2-1.0); Potassium 3.9 mmol/L (3.5-5.1); Protein, Total 6.9 g/dL (6.4-8.2)
[2020-11-30] MEDS ORDERED: NA CHLORIDE 0.9% 1,000 ML ONE (22:51)
[2020-11-30] MEDS ORDERED: NA CHLORIDE 0.9% 500 ML ONE (23:56)
[2020-11-30] MEDS ORDERED: METOCLOPRAMIDE 10 MG/2mL INJ ONE (23:56)
[2020-11-30] MEDS ORDERED: TAMSULOSIN 0.4 MG SR CAP ONE (23:56)
--- NOTE | 2020-12-01 00:35 | ER ---
Nurse's Notes [facility] Name: Micheal Draper Age: 74 yrs Sex: Male : 1945 Arrival Date: 11/30/2020 Time: 20:16 Bed 8 Private MD: John Bello Diagnosis: Calculus of ureter Presentation: 11/30 20:44 Chief complaint: Patient states: Was seen in the ED about a month ago for the same vg1 issue. Pt c/o Left flank pain that began around 1930. Pt denies blood in urine, denies burning or frequency. Pt states nausea. Coronavirus screen: Client denies travel out of the [place] in the last 14 days. Ebola Screen: Patient negative for fever greater than or equal to 101.5 degrees Fahrenheit, and additional compatible Ebola Virus Disease symptoms. 20:44 Method Of Arrival: Ambulatory vg1 20:44 Initial Sepsis Screen: Does the patient meet any 2 criteria? No. Patient's initial vg1 sepsis screen is negative. Does the patient have a suspected source of infection? No. Patient's initial sepsis screen is negative. Risk Assessment: Do you want to hurt yourself or someone else? Patient reports no desire to harm self or others. Onset of symptoms was November 30, 2020. 20:44 Acuity: ANA 3 vg1 Triage Assessment: 20:48 General: Appears in no apparent distress. uncomfortable, Behavior is calm, cooperative. vg1 Pain: Complains of pain in Left flank Pain currently is 9 out of 10 on a pain scale. Noted to be grimacing, moaning. GI: Abdomen is flat, non-distended. Historical: - Allergies: 20:48 No Known Allergies; vg1 - Home Meds: 20:48 atorvastatin Oral [Active]; tamsulosin Oral [Active]; vg1 - PMHx: 20:48 Carcinoma of prostate; Hypercholesterolemia; vg1 - Immunization history:: Adult Immunizations up to date, Client reports receiving the 2nd dose of the Covid vaccine. - Social history:: Smoking status: Patient denies any tobacco usage or history of. Screenin:05 Abuse screen: Denies threats or abuse. Denies injuries from another. Nutritional tr6 screening: No deficits noted. Tuberculosis screening: No symptoms or risk factors identified. Fall Risk None identified. Assessment: 22:04 General: Appears uncomfortable, Behavior is calm, cooperative, appropriate for age. tr6 Pain: Complains of pain in LLQ radiating to left lower back. Neuro: No deficits noted. Cardiovascular: No deficits noted. Respiratory: No deficits noted. GI: Bowel sounds present X 4 quads. Abdomen is tender to palpation in LLQ. : Reports difficulty urinating. pt reports that he feels like he has a kidney stone as his symptoms are similar to when he had one previously. EENT: No deficits noted. Derm: No deficits noted. Musculoskeletal: No deficits noted. 12/01 00:20 Reassessment: Patient appears in no apparent distress at this time. Patient and/or em family updated on plan of care and expected duration. Pain level reassessed. Patient is alert, oriented x 3, equal unlabored respirations, skin warm/dry/pink. rates pain 3/10. 01:32 Reassessment: Patient appears in no apparent distress at this time. Patient and/or em family updated on plan of care and expected duration. Pain level reassessed. Patient is alert, oriented x 3, equal unlabored respirations, skin warm/dry/pink. Vital Signs: 11/30 20:44 BP 144 / 91; Pulse 67; Resp 16; Temp 97.9; Pulse Ox 97% ; Weight 72.57 kg; Height 5 ft. vg1 9 in. (175.26 cm); Pain 9/10; 22:06 BP 145 / 87; tr6 12/01 00:29 BP 139 / 82; Pulse 66; Resp 18; Pulse Ox 97% ; ea 11/30 20:44 Body Mass Index 23.63 (72.57 kg, 175.26 cm) vg1 ED Course: 11/30 20:16 Patient arrived in ED. mr 20:17 John Bello is Private Physician. mr 20:47 Triage completed. vg1 20:48 Arm band placed on Patient placed in waiting room, Pt given cup for urine specimen vg1 Patient notified of wait time. 21:38 Cody Solis PA is PHCP. [facility] 21:38 Abrahan Yip MD is Attending Physician. [facility] 21:44 Jodi Adan RN is Primary Nurse. ea 22:03 Inserted saline lock: 18 gauge in right antecubital area, using aseptic technique. tr6 Blood collected. 22:05 Patient has correct armband on for positive identification. Bed in low position. Call tr6 light in reach. Side rails up X 1. 22:05 No provider procedures requiring assistance completed. tr6 22:26 CT Stone Protocol In Process Unspecified. EDMS 12/01 01:31 IV discontinued, intact, bleeding controlled, No redness/swelling at site. Pressure em dressing applied. Administered Medications: 11/30 22:04 Drug: morphine 4 mg Route: IVP; Site: right antecubital; tr6 12/01 01:32 Follow up: Response: No adverse reaction; Marked relief of symptoms; Pain is decreased em 11/30 22:04 Drug: Zofran (Ondansetron) 4 mg Route: IVP; Site: right antecubital; tr6 12/01 01:32 Follow up: Response: No adverse reaction em 11/30 23:42 Drug: Tamsulosin Extended Release 24 hour Capsule 0.4 mg Route: PO; em 12/01 01:32 Follow up: Response: No adverse reaction em 11/30 23:42 Drug: Reglan (metoCLOPramide) 20 mg Route: IVP; Site: right antecubital; em 12/01 01:31 Follow up: Response: No adverse reaction; Marked relief of symptoms em 11/30 23:42 Drug: NS 0.9% 500 ml Route: IV; Rate: bolus; Site: right antecubital; em 12/01 01:31 Follow up: IV Status: Completed infusion; IV Intake: 500ml em 11/30 23:55 Drug: NS 0.9% 1000 ml Route: IV; Rate: 1 bolus; Site: right antecubital; tr6 12/01 01:32 Follow up: IV Status: Completed infusion; IV Intake: 1000ml em Intake: 01:31 IV: 500ml; Total: 500ml. em 01:32 IV: 1000ml; Total: 1500ml. em Outcome: 00:35 Discharge ordered by . eleazar 01:31 Discharged to home ambulatory, with family. em 01:31 Condition: unchanged 01:31 Discharge instructions given to patient, family, Instructed on discharge instructions, follow up and referral plans. Demonstrated understanding of instructions, follow-up care. 01:32 Patient left the ED. em Signatures: Dispatcher [employer] EDCody Betts PA PA jmm Rivera, Mary mr Jamey, Mariano, RN RN em Jodi Adan, RN RN Diamond Colindres, RN RN vg1 Shima Pierre RN RN tr6 Corrections: (The following items were deleted from the chart) 11/30 20:47 20:44 Chief complaint: Patient states: Was seen in the ED about a month ago for the vg1 same issue. Pt c/o Left flank pain. Pt denies blood in urine, denies burning or frequency. Pt states nausea. vg1 20:47 20:44 BP 144 / 91; Pulse 67bpm; vg1 vg1
--- NOTE | 2020-12-01 00:36 | EDPHYS ---
Physician Documentation [facility] Name: Micheal Draper Age: 74 yrs Sex: Male : 1945 Arrival Date: 11/30/2020 Time: 20:16 Bed 8 Private MD: John Bello ED Physician Abrahan Yip HPI: 11/30 21:50 This 74 yrs old Male presents to ER via Ambulatory with complaints of jmm Possible Kidney Stone. 21:50 The patient complains of pain in the left flank. Onset: The symptoms/episode jmm began/occurred acutely, today. Modifying factors: The symptoms are alleviated by nothing. the symptoms are aggravated by nothing. Associated signs and symptoms: Pertinent positives: dysuria, nausea. The patient has experienced similar episodes in the past. Historical: - Allergies: 20:48 No Known Allergies; vg1 - Home Meds: 20:48 atorvastatin Oral [Active]; tamsulosin Oral [Active]; vg1 - PMHx: 20:48 Carcinoma of prostate; Hypercholesterolemia; vg1 - Immunization history:: Adult Immunizations up to date, Client reports receiving the 2nd dose of the Covid vaccine. - Social history:: Smoking status: Patient denies any tobacco usage or history of. ROS: 21:50 Constitutional: Negative for fever, chills, and weight loss, Cardiovascular: Negative jmm for chest pain, palpitations, and edema, Respiratory: Negative for shortness of breath, cough, wheezing, and pleuritic chest pain. 21:50 Abdomen/GI: Positive for abdominal pain. 21:50 All other systems are negative. Exam: 21:50 Head/Face: atraumatic. Eyes: EOMI, no conjunctival erythema appreciated ENT: Moist jmm Mucus Membranes Neck: Trachea midline, Supple Chest/axilla: Normal chest wall appearance and motion. Cardiovascular: Regular rate and rhythm. No edema appreciated Respiratory: Normal respirations, no respiratory distress appreciated 21:50 Skin: General appearance color normal MS/ Extremity: Moves all extremities, no obvious deformities appreciated, no edema noted to the lower extremities Neuro: Awake and alert, normal gait Psych: Behavior is normal, Mood is normal, Patient is cooperative and pleasant 21:50 Constitutional: The patient appears alert, awake, anxious, uncomfortable. 21:50 Abdomen/GI: Inspection: abdomen appears normal, Bowel sounds: normal, Palpation: soft, mild abdominal tenderness, in the left lower quadrant. 21:50 Back: CVA tenderness, that is mild, is noted on the left. Vital Signs: 20:44 BP 144 / 91; Pulse 67; Resp 16; Temp 97.9; Pulse Ox 97% ; Weight 72.57 kg; Height 5 ft. vg1 9 in. (175.26 cm); Pain 9/10; 22:06 BP 145 / 87; tr6 12/01 00:29 BP 139 / 82; Pulse 66; Resp 18; Pulse Ox 97% ; ea 11/30 20:44 Body Mass Index 23.63 (72.57 kg, 175.26 cm) vg1 MDM: 11/30 21:59 [facility] 12/01 00:34 Data reviewed: vital signs, nurses notes. Counseling: I had a detailed discussion with [facility] the patient and/or guardian regarding: the historical points, exam findings, and any diagnostic results supporting the discharge/admit diagnosis, lab results, radiology results, the need for outpatient follow up, to return to the emergency department if symptoms worsen or persist or if there are any questions or concerns that arise at home. ED course: CT reveals 2 ureteral stones 0.7 cm the other 0.4 cm in the distal ureter. Patient states that he feels much better. Patient is encouraged to follow-up with urology for further evaluation otherwise given strict return precautions. Patient understood and agrees to plan of care.. 11/30 21:40 Order name: Basic Metabolic Panel; Complete Time: 22:44 [facility] 11/30 21:40 Order name: CBC with Diff; Complete Time: 22:18 [facility] 11/30 21:40 Order name: Hepatic Function; Complete Time: 22:44 [facility] 11/30 21:40 Order name: Lipase; Complete Time: 22:44 [facility] 11/30 21:40 Order name: CT Stone Protocol [facility] 11/30 22:02 Order name: Urine Dipstick-Ancillary; Complete Time: 22:18 [facility] 11/30 21:40 Order name: IV Saline Lock; Complete Time: 22:03 [facility] 11/30 21:40 Order name: Labs collected and sent; Complete Time: 22:03 [facility] 11/30 21:40 Order name: Urine Dipstick-Ancillary (obtain specimen); Complete Time: 22:03 [facility] Administered Medications: 11/30 22:04 Drug: morphine 4 mg Route: IVP; Site: right antecubital; tr6 12/01 01:32 Follow up: Response: No adverse reaction; Marked relief of symptoms; Pain is decreased em 11/30 22:04 Drug: Zofran (Ondansetron) 4 mg Route: IVP; Site: right antecubital; tr6 12/01 01:32 Follow up: Response: No adverse reaction em 11/30 23:42 Drug: Tamsulosin Extended Release 24 hour Capsule 0.4 mg Route: PO; em 12/01 01:32 Follow up: Response: No adverse reaction em 11/30 23:42 Drug: Reglan (metoCLOPramide) 20 mg Route: IVP; Site: right antecubital; em 12/01 01:31 Follow up: Response: No adverse reaction; Marked relief of symptoms em 11/30 23:42 Drug: NS 0.9% 500 ml Route: IV; Rate: bolus; Site: right antecubital; em 12/01 01:31 Follow up: IV Status: Completed infusion; IV Intake: 500ml em 11/30 23:55 Drug: NS 0.9% 1000 ml Route: IV; Rate: 1 bolus; Site: right antecubital; tr6 12/01 01:32 Follow up: IV Status: Completed infusion; IV Intake: 1000ml em Disposition: 07:38 Co-signature as Attending Physician, Abrahan Yip MD. pkl Disposition Summary: 12/01/20 00:35 Discharge Ordered Location: Home jm Condition: Stable [facility] Diagnosis - Calculus of ureter [facility] Followup[facility] - With: Private Physician - When: 2 - 3 days - Reason: Recheck today's complaints, Continuance of care, Re-evaluation by your physician Discharge Instructions: - Discharge Summary Sheet [facility] - Kidney Stones [facility] Forms: - Medication Reconciliation Form [facility] - Thank You Letter [facility] - Antibiotic Education [facility] - Prescription Opioid Use [facility] Signatures: Dispatcher [employer] Abrahan Méndez MD MD pkCody Mason PA PA jmm Munoz, Edgar RN Diamond Zhao RN RN 1 Shima Pierre RN RN tr6
[2020-12-01 02:06] VITALS: TEMP 97.9; O2SAT 97
[2020-12-01 02:09] VITALS: BP 139/82
--- NOTE | 2020-12-01 08:19 | RAD REPORT ---
EXAM DESCRIPTION: CT - Stone Protocol - 12/01/2020 5:52 am CLINICAL HISTORY: The patient is 74 years old and is Male; FLANK PAIN TECHNIQUE: Axial computed tomography images of the abdomen and pelvis without intravenous contrast. Sagittal and coronal reformatted images were created and reviewed. This CT exam was performed usi ng one or more of the following dose reduction techniques: automated exposure control, adjustment o f the mA and/or kV according to patient size, and/or use of iterative reconstruction technique. COMPARISON: CT of the abdomen and pelvis November 01, 2020 FINDINGS: LUNG BASES: Unremarkable. ABDOMEN: LIVER: Several cysts are present within the liver, the largest within the left hepatic lobe measu res 2.3 cm. GALLBLADDER AND BILE DUCTS: No calcified stones. No ductal dilation. PANCREAS: Unremarkable. No ductal dilation. SPLEEN: Unremarkable. ADRENALS: Unremarkable. No mass. KIDNEYS AND URETERS: Mild left hydroureteronephrosis is present secondary to a 0.7 cm distal left ureteral calculus. A second smaller 0.4 cm distal left ureteral calculus is present. Edema of the left kidney with perinephric and periureteral stranding is present. Bilateral intrarenal calcificatio ns are present. STOMACH AND BOWEL: The stomach is distended with fluid and food contents. The small bowel is deco mpressed. Stool is present throughout colon. There is no mucosal thickening or evidence of bowel obst ruction. PELVIS: APPENDIX: The appendix is normal in caliber without surrounding inflammation. BLADDER: The bladder is incompletely distended. A large bladder stone is noted within the right base of the bladder, similar to prior exam. REPRODUCTIVE: The prostate is prominent. ABDOMEN and PELVIS: INTRAPERITONEAL SPACE: Unremarkable. No free air. No significant fluid collection. BONES/JOINTS: Multilevel degenerative change of the spine is present. There is no acute fracture. SOFT TISSUES: The soft tissues are normal. VASCULATURE: Atherosclerosis of the vasculature is present. The vessels are normal in caliber. No abdominal aortic aneurysm. LYMPH NODES: Unremarkable. No enlarged lymph nodes. IMPRESSION: 1. Mild left hydroureteronephrosis is present secondary to a 0.7 cm distal left ureter al calculus. A second smaller 0.4 cm distal left ureteral calculus is present. 2. Bilateral nephrolithiasis. Electronically signed by: Yu Wilkinson MD 11/30/2020 11:06 PM CDT Due to temporary technical issues with the PACS/Fluency reporting system, reports are being signed by the in house radiologists without review as a courtesy to insure prompt reporting. The interpreting radiologist is fully responsible for the content of the report.
== END 2020-12-01 01:32 | disposition home or self-care (01) ==
LOC: ER 20:15
DX: N20.1 Calculus of ureter (principal); E78.00 Pure hypercholesterolemia, unspecified
CPT/HCPCS: 85025; 80048; 36415; 80076; 81003; 83690; 76377; 74176; J2765; J7040; J7030; J2405

== ENCOUNTER 2022-12-01 06:25 | Day surgery (SDC) | payer MEDICARE, OTHER ==
[2022-12-01] MEDS ORDERED: Ringers Lactate 1,000 ML IV ONE (07:09)
[2022-12-01] MEDS ORDERED: propofoL 200 MG/20 ML VIAL IV ONE ×2 (07:30→08:24)
[2022-12-01] MEDS ORDERED: LIDOCAINE 1% MPF 2 ML AMPULE ONE (07:31)
[2022-12-01 08:23] VITALS: TEMP 97.3; O2SAT 95
[2022-12-01 08:46] VITALS: BP 114/79
== END 2022-12-01 09:12 | disposition home or self-care (01) ==
LOC: OR 06:25
PROVIDERS: ATTEND Surgery
PROC: 0DBL8ZX Excision of Transverse Colon, Via Natural or Artificial Opening Endoscopic, Diagnostic (ICD-10-PCS; principal; 2022-12-01 07:30)
DX: K62.5 Hemorrhage of anus and rectum (principal); K64.4 Residual hemorrhoidal skin tags; K64.8 Other hemorrhoids; D12.3 Benign neoplasm of transverse colon; Z85.46 Personal history of malignant neoplasm of prostate
CPT/HCPCS: 88305; 45384; J2704 ×2; J7120